=== PATIENT | female | born 1980 | race Caucasian/White ===

== ENCOUNTER 2022-03-06 18:26 | Emergency (ER) | payer BC ==
[~2022-03-06] VITALS: Ht 162.6 cm; Wt 86.2 kg
[2022-03-06 18:32] VITALS: BP_SYST 205
[2022-03-06 20:54] LABS: BASOPHILS % (AUTO) 0.6 % (0.0-2.0); EOSINOPHILS # (AUTO) 0.1 K/uL (0.0-0.4); EOSINOPHILS % (AUTO) 1.1 % (0.0-4.0); HEMATOCRIT 36.3 % (36-48); HEMOGLOBIN 12.6 g/dL (12.0-16.0); LYMPHOCYTES # (AUTO) 2.4 K/uL (1.0-5.5); LYMPHOCYTES % (AUTO) 26.2 % (20.5-51.5); MEAN CORPUSCULAR HEMOGLOBIN 28 pg (27-31); MEAN CORPUSCULAR HGB CONC 35 % (32-36); MEAN CORPUSCULAR VOLUME 81 fL (79.0-98.0); MONOCYTES # (AUTO) 0.5 K/uL (0.0-1.0); MONOCYTES % (AUTO) 5.3 % (1.7-9.3); NEUTROPHILS % (AUTO) 66.8 % (40.0-70.0); PLATELET COUNT (AUTO) 312 K/uL (130-430); RED BLOOD CELL COUNT(AUTO) 4.47 MIL/uL (4.2-6.2); RED CELL DISTRIBUTION WIDTH 14.8 % (9.0-15.0)
[2022-03-06 21:21] LABS: ANION GAP 7 (5-15); CALCIUM 8.8 mg/dL (8.4-11.0); CHLORIDE 106 mmol/L (98-107); CREATININE 0.78 mg/dL (0.55-1.30); GLUCOSE 97 mg/dL (70-99); POTASSIUM 3.9 mmol/L (3.5-5.1); UREA NITROGEN, BLOOD 15 mg/dL (8-21)
[2022-03-06 21:29] LABS: ALANINE AMINOTRANSFERASE 25 U/L (12-78); ALBUMIN 3.9 g/dL (3.4-4.8); ASPARTATE AMINOTRANSFERASE 20 U/L (10-37); LIPASE 113 U/L (73-393); TOTAL BILIRUBIN 0.2 mg/dL (0.0-1.0)
--- NOTE | 2022-03-06 21:30 | NUR ---
PT ASSISTED TO ROOM 4, AMBULATED WITH STEADY GAIT.
[2022-03-06 21:33] LABS: GFR AFRICAN AMERICAN 104 mL/min (>90)
--- NOTE | 2022-03-06 21:46 | NUR ---
Patient to ER bed 4 to gown for evaluation. Side rails up. Report given to LAY SYED(REG).
--- NOTE | 2022-03-06 21:50 | NUR ---
ER at bedside examining patient.
[2022-03-06] MEDS ORDERED: MAG-AL HYDROX/SIMETH 30 ML UDC PO ONE (22:00)
[2022-03-06] MEDS ORDERED: LIDOCAINE VISCOUS 2%, 15 ML UDC MM ONE (22:00)
[2022-03-06] MEDS ORDERED: KETOROLAC TROMETHAMINE 30 MG VIAL IM ONE (22:00)
[2022-03-06] MEDS ORDERED: FAMOTIDINE 20 MG TABLET PO ONE (22:00)
[2022-03-07] MEDS ORDERED: ACET-2634 PO (00:14)
[2022-03-07] MEDS ORDERED: FAMO20TA8 PO (00:14)
[2022-03-07 02:30] VITALS: BP_SYST 125
--- NOTE | 2022-03-07 02:30 | NUR ---
Patient given written and verbal discharge instructions and verbalizes understanding. ER MD discussed with patient the results and treatment provided. Patient in stable condition. ID arm band removed. IV catheter removed intact and dressing applied, no active bleeding. no Rx of given. Patient educated on pain management and to follow up with PMD. Pain Scale 0/10. Opportunity for questions provided and answered. Medication side effect fact sheet provided.
--- NOTE | 2022-03-07 03:54 | NUR ---
patient d/c home with family
== END 2022-03-07 03:54 | disposition home or self-care (01) ==
LOC: SED 18:26
DX: K80.20 Calculus of gallbladder without cholecystitis without obstruction (principal); R10.13 Epigastric pain; Z79.899 Other long term (current) drug therapy
CPT/HCPCS: 99285; 76705; 80053; 83690; 85025; 84484; 36415; 93005; 81002; 81025; 96372; J2001; J1885